=== PATIENT | female | born 1965 | race Caucasian/White ===

== ENCOUNTER 2023-01-24 11:45 | Day surgery (SDC) | payer BC ==
[2023-01-24] MEDS ORDERED: Ondansetron PF 4 MG/2 ML Vial ONE (12:45)
[2023-01-24] MEDS ORDERED: Dexamethasone 20 MG/5 ML VIAL ONE (12:45)
[2023-01-24] MEDS ORDERED: PHENYLEPHRINE-NS 100 MCG/ML 10 ML SYRINGE ONE (12:45)
[2023-01-24] MEDS ORDERED: PROPOFOL 200 MG/20 ML VIAL ONE (12:45)
[2023-01-24] MEDS ORDERED: Lidocaine 1% PF 5 ML VIAL ONE (12:45)
== END 2023-01-24 14:30 | disposition home or self-care (01) ==
LOC: MRI 11:45
PROVIDERS: ATTEND Orthopaedic Surgery
DX: M48.04 Spinal stenosis, thoracic region (principal); M54.14 Radiculopathy, thoracic region; J45.909 Unspecified asthma, uncomplicated; E78.00 Pure hypercholesterolemia, unspecified; Z90.49 Acquired absence of other specified parts of digestive tract; Z98.51 Tubal ligation status; Z79.899 Other long term (current) drug therapy; Z87.891 Personal history of nicotine dependence
CPT/HCPCS: 72146; J1100; J2405; J2704